=== PATIENT | male | born 1960 | race Caucasian/White ===

== ENCOUNTER 2024-02-10 12:50 | Emergency (ER) | payer BC, SELFPAY ==
[2024-02-10 13:27] VITALS: BP 145/89; PULSE 62; RESP 16; TEMP 36.2; O2SAT 96; BMI 30.5
--- NOTE | 2024-02-10 14:17 | ED.GENADULT ---
HPI - General Adult General Chief complaint: Extremity Pain/Injury, Upper Stated complaint: R bicep injury Time Seen by Provider: 02/10/24 14:17 History of Present Illness HPI narrative: Patient here after sensation of tearing right bicep while lifting. 63-year-old man presenting to the emergency department with concern of biceps injury. Apparently was lifting a bed attempting to get a cord out from under it. [place] a tearing and saw something moving the lower biceps. Experienced hot radiating pain now down into the upper forearm as well. Has borrowed an arm sling and is tolerable in flexed position at the elbow. Never injured this area before. Related Data Home Medications Medication Instructions Recorded Confirmed aripiprazole 2 mg tablet 2 mg PO DAILY 02/10/24 02/12/24 bupropion HCl 300 mg 24 hr tablet, 300 mg PO QAM 02/10/24 02/12/24 extended release clonazepam 0.5 mg tablet 0.25 - 0.5 mg PO BID PRN anxiety 02/10/24 02/12/24 sertraline 100 mg tablet 100 mg PO QAM 02/10/24 02/12/24 trazodone 50 mg tablet mg PO 02/10/24 02/12/24 zolpidem 10 mg tablet 5 - 10 mg PO QPM PRN insomnia 02/10/24 02/12/24 Allergies Allergy/AdvReac Type Severity Reaction Status Date / Time Penicillins Allergy Intermediate Hives Verified 02/12/24 13:21 Review of Systems Status of ROS: Reports: 6 or more systems reviewed and unremarkable except as noted in History and below [facility] Medical History (Updated 02/12/24 @ 14:02 by Jeny Garcia PA-C) Acute depression ?F32.A - Depression, unspecified (ICD-10) Surgical History (Updated 02/12/24 @ 13:23 by Gibson Ashford) History of ankle surgery (~2021) ?Z98.890 - Other specified postprocedural states (ICD-10) History of appendectomy ?Z90.49 - Acquired absence of other specified parts of digestive tract (ICD-10) Social History Smoking Status: Never smoker Do you use any of these nicotine containing products: None How often do you have a drink containing alcohol: never How often do you have six or more drinks on one occasion: Never AUDIT-C Alcohol total score: 0 Non-prescribed substance use: denies use service: No Exam Narrative: Exam Narrative: Pleasant. Will build. NAD but clearly uncomfortable when manipulating his right arm. Right arm sling on the right arm. Breathing easily. Examination of the right arm he was able to flex and extend his wrist and fingers. Attempted straightening his right arm though elicits severe increase in discomfort. He is quite sore to palpation over the upper inner forearm and there appears to be defect, a depression, when elbow at 90? at the inner lower aspect upper arm. Has less prominent inner biceps tendon. No pain to palpation or defect appreciated about the shoulder. Const: Vital Signs, click to edit/add: Vital Signs - 24 hr 02/10/24 13:27 Temperature 97.1 F L Pulse Rate [Pulse Oximeter] 62 Respiratory Rate 16 Blood Pressure [Le ft Upper Arm] 145/89 H Pulse Oximetry 96 Oxygen Delivery Me thod Room Air Documenting provider has reviewed patient's vital signs: yes Course Vital Signs Vital signs: Initial Vital Signs Temperature 97.1 F L 02/10/24 13:27 Temperature Source Temporal Artery Scan 02/10/24 13:27 Pulse Rate 62 02/10/24 13:27 Pulse Rhythm Regular 02/10/24 13:27 Respiratory Rate 16 02/10/24 13:27 Blood Pressure 145/89 H 02/10/24 13:27 Blood Pressure Mean 107 H 02/10/24 13:27 Blood Pressure Position Sitting 02/10/24 13:27 Pulse Oximetry 96 02/10/24 13:27 Oxygen Delivery Method Room Air 02/10/24 13:27 Vital Signs Temperature 97.1 F L 02/10/24 13:27 Pulse Rate 62 02/10/24 13:27 Respiratory Rate 16 02/10/24 13:27 Blood Pressure 145/89 H 02/10/24 13:27 Pulse Oximetry 96 02/10/24 13:27 Oxygen Delivery Method Room Air 02/10/24 13:27 Temperature 97.1 F L 02/10/24 13:27 Pulse Rate 62 02/10/24 13:27 Respiratory Rate 16 02/10/24 13:27 Blood Pressure 145/89 H 02/10/24 13:27 Pulse Oximetry 96 02/10/24 13:27 Oxygen Delivery Method Room Air 02/10/24 13:27 Medical Decision Making MDM Narrative Medical decision making narrative: Would certainly have some concern of biceps rupture here. Will take x-rays of the elbow though looking for potential avulsion fracture as well. X-rays by my read seem to show some soft tissue swelling. I do not see avulsion fracture. Pending over-read by radiology. I did talk with orthopedics on-call to arrange follow-up. Discussed pain management. Already has a quality arm sling. See patient discharge plan for further discussion. Discharge Plan Discharge Clinical Impression: Biceps rupture, distal Qualifiers: Encounter type: initial encounter Laterality: right Qualified Code(s): S46.211A - Strain of muscle, fascia and tendon of other parts of biceps, right arm, initial encounter Patient Disposition: Home w/ Parent or Adult Condition: Stable Additional Instructions: I would continue to ice a few times daily over the next few days. I spoke with Orthopedics today, Jeny Paul. Anticipate a call from them on Monday morning to schedule. If you do not hear from them by noon on Monday, go ahead and call [phone]. Repeat exam when less tender can be further helpful. May need MRI though to further characterize. Unfortunately I cannot do an MRI over the weekend. Can take up to 800 mg of ibuprofen or up to 1000 mg of acetaminophen per dose. Alternative to the ibuprofen might be up to 500 mg naproxen 2 times daily. Would consider wearing an arm sling loosely at night with arm propped on a pillow just to avoid flinging your arm out and causing more pain. Pleasure to meet you. Prescriptions: No Action trazodone 50 mg tablet PO clonazepam 0.5 mg tablet 0.25 - 0.5 mg PO BID PRN (Reason: anxiety) sertraline 100 mg tablet 100 mg PO QAM zolpidem 10 mg tablet 5 - 10 mg PO QPM PRN (Reason: insomnia) bupropion HCl 300 mg tablet extended release 24 hr 300 mg PO QAM aripiprazole 2 mg tablet 2 mg PO DAILY Follow Up/Referrals: Juan Manuel Mayo MD [Staff Physician] - Stand Alone Forms: [employer] Info Instructions
--- NOTE | 2024-02-10 14:22 | XR_ITS ---
Patient: EVELINE BRYSON Facility:?[facility] Patient ID:?[id number] Site Patient ID:?[id number]. Site :?1960 Study:?XRay-Extremity Right ELBOW 3 VIEWS-02/10/2024 2:40:23 PM Ordering Physician:SOPHIA Final Report: INDICATION: SUSPECT BICEPTS TEAR, LOOK FOR AVULSION. (Sic) COMPARISON: None available. TECHNIQUE: Views: 3 FINDINGS: Mineralization: Normal. Alignment: Normal. Bones and Joints: No fracture is identified. Small medial humeral epicondylar enthesophyte. Intact radial tuberosity. Soft Tissues: No joint effusion. Possible mild posterior periarticular soft tissue swelling. IMPRESSION: No avulsion fracture is identified. Incidental note is made of possible mild posterior periarticular soft tissue swelling. Dictated by Vinicio Valverde MD @ 02/10/2024 3:04:51 PM Signed by:?Vinicio Valverde MD @02/10/2024 3:04:51 PM (Electronic Signature)
== END 2024-02-10 15:13 | disposition home or self-care (01) ==
PROVIDERS: Emergency Provider Family Medicine; PCP Family Medicine
DX: S46.211A Strain of muscle, fascia and tendon of other parts of biceps, right arm, initial encounter (principal)
CPT/HCPCS: 73080; 99283; 99284

== ENCOUNTER 2024-02-14 15:16 | Outpatient (CLI) | payer BC, SELFPAY ==
--- NOTE | 2024-02-14 15:30 | MR_ITS ---
[address] [address] Phone:?[phone] Fax:?[phone] Referring Physician Information: Ariane Jones [address] [facility] [address] Phone:?[phone] Fax:?[phone] Patient:Rodney Anders D.O.B:?1960 Sex:?Male Phone:?[phone] [facility] MRN:?[id number] Exam Date:?02/14/2024 EXAM: MRI OF THE RIGHT ELBOW CLINICAL INFORMATION: The patient is a 63-year-old with right elbow pain. Evaluate for musculotendinous injury. Evaluate for distal biceps rupture. PRIOR SURGERY: None reported. COMPARISON STUDIES: Comparison is made to prior radiographs dated 02/10/2024. TECHNICAL INFORMATION: Imaging was produced on a high-field, 1.5 Tracy MR scanner. Coronal T1, proton-density, T2, and STIR imaging of the right elbow was produced in addition to sagittal proton-density and T2 imaging. Axial proton- density and T2 imaging was also performed. FINDINGS: Elbow joint: Effusion: Mild. Ganglion cyst: None. Osteochondral surfaces: No definite chondral or osteochondral injury can be seen along the articular surfaces of the elbow. Loose bodies: No well-defined intra-articular loose bodies are seen. Olecranon bursa: No definite evidence for bursitis is noted. Osseous structures: Humerus: No fracture, osteochondritis dissecans or marrow edema/pathology. Radius: No fracture or marrow edema. Ulna: No fracture or marrow edema. Myotendinous structures: Biceps: There is a complete disruption of the distal biceps tendon from its radial tuberosity attachment with retraction to the level of the distal humerus on sagittal series 7 image 15. The retraction measures 7.5 cm in craniocaudal dimension. Surrounding soft tissue edema and/or hemorrhage is noted. Underlying changes of biceps tendinosis can be seen. No well-defined injury to the distal biceps myotendinous junction is noted. Triceps: Intact posterior tendinous and anterior muscular insertions and lateral aponeurotic component, without tendinopathy, strain or tear. Brachialis: No strain/tear. Forearm extensors: There is thickening and irregularity of the common extensor origin at the lateral epicondyle, in keeping with chronic changes of lateral epicondylitis. There is no evidence for rupture or retraction. No other abnormalities of the forearm extensors are noted. Forearm flexors: Chronic appearing thickening and irregularity of the common flexor origin can be seen with intrasubstance splitting on coronal series 4 image 15. The findings are in keeping with moderate medial epicondylitis. No evidence for disruption or retraction is seen. No other abnormalities of the forearm flexors are noted. Ligaments: Ulnar collateral: No sprain or disruption. Radial collateral: Normal. Lateral ulnar collateral: Normal. Annular: Intact. Neurovascular structures: Ulnar nerve: Normal, without appreciable edema, thickening or mass. Median neurovascular bundle: Normal. Radial neurovascular bundle: Normal. CONCLUSION: 1. Rupture of the distal biceps tendon from its radial tuberosity attachment with retraction measuring 7.5 cm in craniocaudal dimension. Surrounding soft tissue edema and/or hemorrhage is noted. 2. Changes of moderate medial and lateral epicondylitis can be seen. 3. Mild elbow joint effusion. 4. The ligamentous structures of the elbow appear intact. 5. No bony or osteochondral injuries are seen. 6. No neurovascular abnormalities are present. AEC Electronically signed on 02/15/2024 11:35:00 AM by Joe Thomas M.D.
== END 2024-02-14 15:17 | disposition home or self-care (01) ==
PROVIDERS: PCP Family Medicine; Visit Provider Physician Assistant
DX: M25.521 Pain in right elbow (principal); S46.211A Strain of muscle, fascia and tendon of other parts of biceps, right arm, initial encounter; M25.421 Effusion, right elbow
CPT/HCPCS: 73221

== ENCOUNTER 2024-02-22 11:26 | Day surgery (SDC) | payer BC, SELFPAY ==
[2024-02-22] VITALS (7 sets, daily range): BP systolic 103–130; BP diastolic 61–84; PULSE 54–58; RESP 16–20; TEMP 36.1–36.6; O2SAT 94–96; BMI 33.2
--- OUTSIDE RECORDS SUMMARY | 2024-02-22 11:32 | XMS_ITS | Clinical Summary ---
Author Name Unknown Organization [facility] Address [address] [place] [address] Care Team Providers Care [employer] Name Role Phone Ranjan Swartz MD Primary Care Provider [phone] Source Comments You are receiving this document as you are listed as the primary care provider,follow-up provider, or the patient has been referred to you for consultation.This is in compliance with the Medicare andMedicaid EHR Incentive Program,which states Providers who transition their patient to another setting of careor provider of care or refers their patient to another provider of care shouldprovide summary care record for each transition of care or referral. Mark mediaTuba City Regional Health Care [email or web address] Allergies Active Allergy Reactions Criticality Noted Date Comments Penicillins Hives 07/20/2015 Medications Medication Sig Dispensed Refills Start Date End Date Status sertraline (ZOLOFT) 100 MG tabletIndications:Ex posure to MRSA Take 100 mg by mouth. 05/08/2017 Active buPROPion (WELLBUTRIN XL) 300 MG 24 hour release tabletIndications:Ex posure to MRSA Take 300 mg by mouth. 05/08/2017 Active clonazePAM (KLONOPIN) 0.5 MG tabletIndications:Ex posure to MRSA TAKE 1/2 TABLET BY MOUTH UP TO TWICE A DAY FOR ANXIETY OR AGITATION AND 1 OR 2 TABS AT BEDTIME NEEDED FOR INSOMNIA 05/08/2017 Active ARIPiprazole (ABILIFY) 2 MG tabletIndications:Ex posure to MRSA Take 1 tablet by mouth at HS 05/08/2017 Active zolpidem (AMBIEN) 10 MG tablet Take 10 mg by mouth. 09/13/2018 Active polyethylene glycol-electrolyte (GO-LYTELY) 236 g oral solution Take as directed in patient instructions: Drink 2000 mL at 6 PM the evening before and 2000 mL 4 hours before your procedure. 4000 mL 09/09/2019 Active bisacodyl (DULCOLAX) 5 MG enteric coated tablet Take 4 tablets by mouth once at 5 PM the evening before your procedure. 4 Tablet 09/09/2019 Active Active Problems Problem Noted Date Diagnosed Date MRSA (methicillin resistant staph aureus) cultur e positive 02/09/2022 Obesity, Class I, BMI 30-34.9 08/09/2019 Depression, major, recurrent, mild 05/08/2017 Generalized anxiety disorder 10/31/2016 Mixed hyperlipidemia 07/05/2016 Overview: Cardiovascular Risk Summary: Risk for a heart attack or stroke in the next 10 years is 10.13% (using the ACC/AHA ASCVD risk score) based on age 59, male gender, BP 127/79 mm Hg, not on BP medication, total cholesterol 271 mg/dl, HDL 52 mg/dl, diabetes diagnosis not identified, current cigarette smoking not identified. Cardiovascular risk could be reduced with attention to the following, in order of priority Statin use or intensification Aspirin use Weight loss Wizard?? Immunizations Name Administration Dates Next Due Chicken Pox - History of Illness 1966 HepA-HepB ([place], 18+ yrs) 08/07/2019,07/17/20 17 Influenza ([place] Only) (Flul aval Quad 0.5, 3+ yrs) 06/26/2012 Influenza (Fluad) 06/26/2012 Influenza IIV4 (Quadrivalent) 0.5mL (56920) 07/10,07/20/2015,06/26/2012 Influenza, Unspecified Formulation 06/26/2019, Measles 07/17/2017 Mumps 07/17/2017 Pfizer Monovalent 12+ 02/25/2022 Pfizer Monovalent 12+ Purple Top 02/05/2021,04/0 05/2021 Positive Measles Titer 07/17/2017 Positive Mumps Titer 07/17/2017 Td 01/02/2006 Td Adult, Unspecified Formulation 01/02/2006 Tdap 08/09/2021,03/30/2011 Varicella 1966 Social History Tobacco Use Types Packs/Day Years Used Date Smoking Tobacco: Never Smokeless Tobacco: Never Alcohol Use Standard Drinks/Week Comments Yes 4 (1 standard drink = 0.6 oz pur e alcohol) AUDIT-C Answer Date Recorded Frequency of Alcohol Consumption 2-4 times a mon08/09/2019 Average Number of Drinks Not on file 019 Frequency of Binge Drinking Not on file 10/2018 Sex and Gender Information Value Date Recorded Sex Assigned at Not on file Gender Identity Not on file Sexual Orientation Not on file Last Filed Vital Signs Vital Sign Reading Time Taken Comments Blood Pressure 127/79 08/09/2019 6:56 AM CDT Pulse 64 08/09/2019 6:56 AM CDT Temperature 36.5 ??C (97.7 ??F) 08/09/2019 6:56 AM CD T Respiratory Rate 16 08/09/2019 6:56 AM CDT Oxygen Saturation 97% 10/19/2018 1:52 PM FABRICATION MIG WELDER Inhaled Oxygen Concentration - - Weight 101.6 kg (224 lb) 08/09/2019 6:56 AM CDT Height 183 cm (6' 0.05) 08/09/2019 6:56 AM CDT Body Mass Index 30.34 08/09/2019 6:56 AM CDT Plan of Treatment Health Maintenance Due Date Last Done Comments Colon Cancer Screening Plan Due 1960 PSA Screening Discussion 1960 Zoster/Shingles (1 of 2) 2010 HepA (3 of 3 - Hep A Twinrix risk 3-dose series) 01/06/2020 08/07/2019, 07/17/2017 HepB (3) 01/06/2020 08/07/2019, 07/17/2017 Adult Preventive Visit 08/09/2020 08/09/2019 COVID-19 Vaccine ( season) 2023 02/25/2022, 02/05/2021, 01/14/2021 Influenza (Season Ended) 2024 020, 06/26/2019, 06/26/2017, Additional history exists Cholesterol 08/09/2024 08/09/2019 DTaP/Tdap/Td (3 - Tdap) 08/09/2031 08/09/20 21, 03/30/2011, 01/02/2006, Additional history exists HIV Screening (Preventive Services) Completed 08/09/2019 Hep C Screening (Preventive Services) Completed 08/09/2019 Hib Aged Out No longer eligi ble based on patient's age to complete this topic IPV (Polio) Aged Out No longer eligi ble based on patient's age to complete this topic MCV4 Aged Out No longer eligi ble based on patient's age to complete this topic Pneumococcal Aged Out No longer eligi ble based on patient's age to complete this topic Procedures Procedure Name Priority Date/Time Associated Diagnosis Comments HIV 1/2 AG/AB 4TH GEN Routine 08/09/2019 7:33 AM CDT Encounter for screening for human immunodeficiency virus (HIV) HEPATITIS C ANTIBODY, WITH REFLEX Routine 08/09/2019 7:33 AM CDT Need for hepatitis C screening test LIPID PANEL & DIRECT LDL (IF NEEDED) Routine 08/09/2019 7:33 AM CDT Lipid screening from Last 3 Months or Most Recently Relevant to Health Maintenance Results * HIV 1/2 Ag/Ab 4th Generation (08/09/2019 7:33 AM CDT) HIV 1/2 Antigen/Antib zak (4th generation) Negative (Non Reactive) Negative (Non Reactive) 08/09/2019 9:57 AM CDT [facility] Comment:HIV-1 p24 Antigen an d HIV-1/HIV-2 Antibody not detected Blood Venipuncture / Unknown 08/09/2019 7:33 AM CDT 08/09/2019 7:33 AM CDT Ranjan Swartz MD [facility] [address] * (ABNORMAL) Lipid Panel - LDLD If Trig High (08/09/2019 7:33 AM CDT) Cholesterol 271(H) 0 - 199 mg/dL 08/09/2019 9:05 AM CDT [facility] Triglyceride 117 <=149 mg/dL 08/09/2019 9:05 AM CDT [facility] HDL Cholesterol 52 >=40 mg/dL 9 9:05 AM T [facility] LDL, Calculated 196(H) <130 mg/dL 9 9:05 AM T [facility] Non HDL Chol, Calculated 219 mg/dL 08/09/2019 9:05 AM T [facility] Cholesterol/HDL Ratio 5.2 08/09/2019 9:05 AM T [facility] Hours Fasting 12 08/09/2019 9:05 AM CDT [facility] Blood Venipuncture / Unknown 08/09/2019 7:33 AM CDT 08/09/2019 7:33 AM CDT Ranjan Swartz MD [facility] [address] [place] [address], [facility] [phone] [facility] [address] [place] [address], [facility] [phone] * Hepatitis C Virus Monae with Reflex (08/09/2019 7:33 AM CDT) Hepatitis C Antibody Negative (Non Reactive) Negative (Non Reactive) 08/09/2019 9:57 AM CDT [facility] Comment:Antibodies to HCV no t detected. Does not exclude the possiblity of exposure to HCV. Blood Venipuncture / Unknown 08/09/2019 7:33 AM CDT 08/09/2019 7:33 AM CDT Ranjan Swartz MD [facility] [address] [place] [address], [facility] from Last 3 Months or Most Recently Relevant to Health Maintenance Care Teams [employer] Relationship Specialty [place] [address] [place] [address] PCP - General Family Practice 07/19/19
[2024-02-22] MEDS: LACTATED RINGERS 1000 ML 1,000 ML 100 ML IV (12:05)
[2024-02-22] MEDS: SODIUM CHLORIDE 0.9 % (FLUSH) 10 ML SYRINGE IVF (12:09)
[2024-02-22] MEDS: fentaNYL 100 MCG/2 ML inj IVP (12:25)
[2024-02-22] MEDS: MIDAZOLAM HCL 1 MG/ML inj IVP (12:25)
--- NOTE | 2024-02-22 12:32 | SUR.PREOP ---
TIME?OUT:?1223, right bicep PT/RN/MDA?VERIFICATION?OF?SURGICAL?SITE,?PROCEDURE,?AND?CONSENT OBTAINED?PRIOR?TO?INVASIVE?PROCEDURE.
--- NOTE | 2024-02-22 12:54 | W.PM.NB ---
Nerve Block Nerve Block Time Seen by Provider: 12:29 Date Seen: 02/22/24 Type of block requested by surgeon for post-operative analgesia: axillary Side: right Time out performed: Yes Verification of patient name: Yes Verification of date of : Yes Site marking: site marked Name of person performing procedure: Jose Continuous monitoring Was continuous monitoring of O2 sat, B/P, alarm security or surveillance monitor, recorded every 15 minutes?: Yes Procedure Checklist: sterile prep, needles and gloves Ultrasound guided. Images saved: Yes Medications given in 5ml increments after negative aspiration: Ropivicaine %: 0.5 mL: 30 Needle gauge: 22 Patient tolerated procedure well: Yes Additional comments: Needle noted adjacent to nerve Block Charges Block Charge (with Pro Fee): Brachial Plexus Use of Ultrasound Machine for Block: Yes- US Guidance/pain block
--- NOTE | 2024-02-22 12:54 | W.ANESCHARGE ---
Anesthesia Charges Start Date/Time Anesthesia Start Date: 02/22/24 Anesthesia Start Time: 12:45 Stop Date/Time Anesthesia Stop Date: 02/22/24 Anesthesia Stop Time: 14:47
--- NOTE | 2024-02-22 13:16 | XR_ITS ---
Patient: EVELINE BRYSON Facility:?[facility] Patient ID:?[id number] Site Patient ID:?[id number]. Site :?1960 Study:?XRay-Extremity Right Elbow intra-op-02/22/2024 2:30:34 PM Ordering Physician:?Tavares Shahid Final Report: Indication: Intraop right biceps repair Technique: Eight radiographic images of the right elbow submitted. IMPRESSION: Operative findings of biceps tendon repair noted with expected changes in the soft tissues. Dictated by Nam Cárdenas MD @ 02/23/2024 9:54:11 AM Signed by:?Nam Cárdenas MD @02/23/2024 9:54:11 AM (Electronic Signature)
--- NOTE | 2024-02-22 14:08 | PM.ORPRC ---
Procedure Note Date of procedure: 02/22/24 Procedure: PREOPERATIVE DIAGNOSIS: Right upper extremity distal biceps tendon tear POSTOPERATIVE DIAGNOSIS: Right upper extremity distal biceps tendon tear NAME OF OPERATION: Primary Repair SURGEON: Tavares Shahid MD HYPERBARIC WELDER DIVER: RAYMUNDO Dietz ANESTHESIA: General endotracheal ESTIMATED BLOOD LOSS: 0 mL. COMPLICATIONS: None. SPECIMENS: None. DRAINS: None. PREOPERATIVE ANTIBIOTICS: Ancef 2 grams INDICATIONS: The patient is a 63-year-old male with a history of a right elbow injury, sustaining full-thickness disruption of the distal biceps tendon. Operative intervention was recommended. The risks, benefits and expected outcomes were discussed in detail. These included but were not limited to: Infection, bleeding, injury to blood vessel or nerve, venous thromboembolism. All questions were answered to their satisfaction. Use of an assistant superintendent was necessary throughout the case for patient positioning and safety, soft tissue retraction and closure. PROCEDURE: General anesthesia was administered. The patient was placed supine on the operating room table. The right upper extremity was prepped and draped in the usual sterile fashion. The limb was exsanguinated with the Cody bandage. The pneumatic tourniquet was inflated to 250 mm of mercury. A transverse incision was made 4 cm distal to the antecubital crease. Subcutaneous dissection was taken with tenotomy scissors to the antecubital veins which were carefully preserved throughout the case. The lateral antebrachial cutaneous nerve was not seen during the case. There was a tube of peritenon which was intact all the way down to the radial tuberosity. This was followed down to the radial tuberosity. It was resected off of the insertion. The Lempert rongeur and the joker elevator were used to debride the radial tuberosity. Dissection was carried proximally, to the biceps tendon. We debrided the distal end of biceps tendon and placed a whipstitch with #2 FiberWire suture. The forearm was placed in maximum supination. We drilled a bicortical guide pin through the radial tuberosity. We drilled an 8 mm unicortical socket. We placed the button on the limbs of the whipstitch and advanced it into the socket through the deep guide pin hole and flipped it on the far cortex of proximal radius. We kept the forearm in maximum supination and flexed the elbow while retracting the limbs of the suture. This advanced the distal biceps tendon into the socket to a depth of 10 mm. We placed 1 limb of the suture through the tendon and tied several knots over the top of the tendon. We placed an 7 mm x 10 mm peek interference screw over the radial side of the tendon, pushing it ulnarly. We tied several knots over the top of the screw. This provides an excellent repair of the distal biceps tendon to its anatomic insertion. The wound was irrigated with normal saline. The wound was infiltrated with 0.25% Marcaine without epinephrine. Subcutaneous tissues were closed with a 2-0 Vicryl. Skin was closed with a 3-0 Monocryl in a subcuticular fashion. A dry dressing and sling were applied. Sponge and needle counts were correct x2. The patient tolerated the procedure well. There were no apparent complications. They were carefully transferred to the hospital bed and taken to the postanesthesia care unit in satisfactory condition. PLAN: The patient will be discharged to home. They will follow up in the office next week for a wound check, in preparation for occupational therapy. We will begin gentle active range of motion immediately.
--- NOTE | 2024-02-22 14:48 | W.ANESCHARGE ---
Anesthesia Charges Start Date/Time Anesthesia Start Date: 02/22/24 Anesthesia Start Time: 12:45 Stop Date/Time Anesthesia Stop Date: 02/22/24 Anesthesia Stop Time: 14:47
== END 2024-02-22 16:01 | disposition home or self-care (01) ==
PROVIDERS: PCP Family Medicine; Visit Provider Orthopaedic Surgery
PROC: (CPT 24341; principal; 2024-02-22 12:45)
DX: S46.211A Strain of muscle, fascia and tendon of other parts of biceps, right arm, initial encounter (principal); G89.18 Other acute postprocedural pain
CPT/HCPCS: 24341; 01716; 64415; 73070; 76942; A4580; C1713; J1100; J2250; J2405; J2704; J2795; J3010; J7120